=== PATIENT | female | born 1955 ===

== ENCOUNTER → 2019-05-03 06:00 | Outpatient (REF) | payer MEDICARE, BC, SELFPAY | LOC: ANHLAB 06:00 | PROVIDERS: PCP Family Medicine; Visit Provider Nurse Practitioner | DX: C44.311 Basal cell carcinoma of skin of nose (principal) | CPT/HCPCS: 88305; 88331 ==

== ENCOUNTER → 2019-10-05 09:17 | Outpatient (REF) | payer MEDICARE, BC, SELFPAY | LOC: ANHLAB 09:17 | PROVIDERS: PCP Family Medicine; Visit Provider Surgery Plastic and Reconstructive Surgery | DX: L90.5 Scar conditions and fibrosis of skin (principal); L91.8 Other hypertrophic disorders of the skin | CPT/HCPCS: 88305 ==